=== PATIENT | female | born 1985 | race Caucasian/White ===

== ENCOUNTER 2017-02-13 13:03 | Emergency (ER) | payer SELFPAY ==
[~2017-02-13] VITALS: Ht 162.6 cm; Wt 54.4 kg
[2017-02-13] MEDS ORDERED: TOPAMAX100 MG PO (13:44)
== END 2017-02-13 13:35 | disposition short-term general hospital (02) ==
LOC: ER 13:03
DX: K08.89 Other specified disorders of teeth and supporting structures (principal); Z88.5 Allergy status to narcotic agent